=== PATIENT | male | born 1980 | race Caucasian/White ===

== ENCOUNTER 2017-03-29 08:29 | Emergency (ER) | payer SELFPAY | END 2017-03-29 09:24 | disposition home or self-care (01) | LOC: FER 08:29 | DX: K04.7 Periapical abscess without sinus (principal); K02.9 Dental caries, unspecified; F17.200 Nicotine dependence, unspecified, uncomplicated | CPT/HCPCS: 99282 ==

== ENCOUNTER 2020-11-11 16:09 | Emergency (ER) | payer OTHER ==
[2020-11-11] MEDS ORDERED: AUGMENTIN 875-1 EACH PO (18:49)
== END 2020-11-11 19:05 | disposition home or self-care (01) ==
LOC: FER 16:09
DX: S61.233A Puncture wound without foreign body of left middle finger without damage to nail, initial encounter (principal); L08.9 Local infection of the skin and subcutaneous tissue, unspecified; F17.210 Nicotine dependence, cigarettes, uncomplicated; W45.8XXA Other foreign body or object entering through skin, initial encounter; Y92.89 Other specified places as the place of occurrence of the external cause; Y99.0 Civilian activity done for income or pay
CPT/HCPCS: 73140; 87070; 87077; 87186; 87205